=== PATIENT | female | born 1950 | race Caucasian/White ===

== ENCOUNTER → 2018-08-13 | Day surgery (SDC) | payer MEDICARE ==
[2018-08-05 13:14] LABS: BASOPHILS % 0.4 % (0.0-1.0); EOSINOPHILS # (AUTO) 0.2 (0.0-0.4); EOSINOPHILS % 2.2 % (0.0-6.0); HEMATOCRIT 33.5 % (34.2-44.1); HEMOGLOBIN 11.2 g/dL (12.0-16.0); LYMPHOCYTES # (AUTO) 1.8 (1.0-3.2); LYMPHOCYTES % 24.4 % (18.0-39.1); MEAN CORPUSCULAR HEMOGLOBIN 32.7 pg (28-32); MEAN CORPUSCULAR HGB CONC 33.4 g/dL (31-35); MEAN CORPUSCULAR VOLUME 97.7 fL (81-99); MONOCYTES # (AUTO) 0.5 (0.2-0.8); MONOCYTES % 6.4 % (4.4-11.3); NEUTROPHILS # (AUTO) 4.8 (2.1-6.9); NEUTROPHILS % 66.3 % (38.7-80.0); PLATELET COUNT 350 x10e3/uL (140-360); RED BLOOD COUNT 3.43 x10e6/uL (3.6-5.1); RED CELL DISTRIBUTION WIDTH 14.2 % (11.7-14.4)
[2018-08-05 13:34] LABS: ANION GAP 11.7 mmol/L (8-16); BLOOD UREA NITROGEN 10 mg/dL (7-26); BUN/CREATININE RATIO 15 (6-25); CALCIUM 9.2 mg/dL (8.4-10.2); CARBON DIOXIDE 26 mmol/L (22-29); CHLORIDE 105 mmol/L (98-107); CREATININE, SERUM 0.67 mg/dL (0.57-1.11); EST GLOMERULAR FILTRATION RATE > 60 ML/MIN (60-); GLUCOSE 91 mg/dL (74-118); POTASSIUM 3.7 mmol/L (3.5-5.1); SODIUM 139 mmol/L (136-145)
--- NOTE | 2018-08-05 13:38 | Diagnostic Imaging Report ---
EXAMINATION: PA and lateral views of the chest. COMPARISON: None CLINICAL HISTORY: Preoperative study for carpal tunnel syndrome DISCUSSION: The lungs are well-inflated. Right hemidiaphragmatic elevation. No airspace consolidation, pleural effusion, or pneumothorax. Heart size is normal without overt pulmonary edema. No acute osseous abnormalities. IMPRESSION: No acute cardiopulmonary abnormalities. Signed by: Dr. Chadd Serrato M.D. on 08/05/2018 1:34 PM
[~2018-08-13] MED LIST: BIOTIN800 MCG; BUPIVACAINE HCL 0.5% INJ 30 ML VIAL INJ ONE; CALTRATE 600600 MG PO; CEFAZOLIN SOD 1 GM/NS 50ML 50 ML IV ONE; CENTRUM COMPLE1 EACH; CENTRUM SILVER1 EAC1 PO; CYMBALTA30 MG; DEXAMETHASONE SOD PHOS INJ 4 MG/ML VIAL ONE; DICLOFENAC SODI75 MG PO; ENBREL50 MG/1 ML IJ; EVISTA60 MG PO; FENTANYL CITRATE/PF 100MCG/2 ML INJ ONE; FOLIC ACID PO; HYDROCODON-ACE1 EAC7 PO; LASIX40 MG PO; LEVOXYL88 MCG PO; LIDOCAINE HCL 2% LOCAL INJ 5 ML SDV VIAL INJ ONE; LORTAB 7.5-5001 EACH PO; METHOTREXATE2.5 MG PO; MIDAZOLAM HCL 2 MG/2 ML VIAL ONE; MUPIROCIN 2% OINT 22 GM TUBE ONE; NUVIGIL250 MG; ONDANSETRON HCL INJ 2MG/ML 2ML 2 MG/ML VIAL ONE; OXYCODONE-ACET1 EAC1 PO; PHENTERMINE H37.5 MG PO; PLAQUENIL200 MG PO; POTASSIUM PO; PRILOSEC20 MG PO; PROPOFOL IV EMULSION 10 MG/ML 20 ML VIAL ONE; REQUIP XL2 MG PO; SEVOFLURANE INHAL SOLN 250 ML PEN BTL ONE; SLOW RELEASE I143 MG; TIZANIDINE HCL4 M1; VITAMIN D32000 UNI1; XARELTO10 MG PO; ZOLOFT25 MG PO; [UNRECOGNIZED DRUG - OTHER] PO
--- OUTSIDE RECORDS SUMMARY | 2018-08-13 06:26 | XMS REPORT ---
Author Author [facility] Address Unknown Phone Unavailable Care Team Providers Care Marine Meteorologist Name Role Phone MIRELA PINO Unavailable Unavailable Problems This patient has no known problems. Allergies, Adverse Reactions, Alerts This patient has no known allergies or adverse reactions. Medications This patient has no known medications. Results Test Description Test Time Test Comments Text Results Atomic Results Result Comments CHEST 2 VIEWS 2018-08-05 13:32:00 [place] [address] Patient Name: SAMARIA MIDDLETON MR #: [id number] : 1950 Age/Sex: 67/F Req #: [id number] Adm Physician: Ordered by: MIRELA PION MD Report #: [id number] Location: OR Room/Bed: Procedure: [id number] DX/CHEST 2 VIEWS Exam Date: 08/05/18 Exam Time: 1315 REPORT STATUS: Signed EXAMINATION: PA and lateral views of the chest. COM PARISON: None CLINICAL HISTORY: Preoperative study for carpal tunnel syndrome DISCUSSION: The lungs are well-inflated. Right hemidiaphragmatic elevation. No airspace consolidation, pleural effusion, or pneumothorax. Heart size is normal without overt pulmonary edema. No acute osseous abnormalities. IMPRESSION: No acute cardiopulmonary abnormalities. Signed by: Dr. Pushpa Callaway M.D. on 08/05/2018 1:34 PM Dictated By: PUSHPA CALLAWAY MD [id number] Transcribed By: BRADY on 08/05/18 [id number] COPY TO: MIRELA PINO MD
--- OUTSIDE RECORDS SUMMARY | 2018-08-13 06:26 | XMS REPORT | Clinical Summary ---
Author Author [facility] Address Unknown Phone Unavailable Care Team Providers Care Digital Product Specialist Name Role Phone Efe Lewis MD PCP Allergies Comments Active Allergy Reactions Severity Noted Date Pregabalin 03/07/2017 Doxepin 03/07/2017 Medications End Date Status Medication Sig Dispensed Refills Start Date Active amoxicillin (AMOXIL) 500 TK ONE C PO 0 MG capsule TID 7 Active diclofenac (VOLTAREN) 75 TK 1 T PO BID 1 MG EC tablet WITH FOOD 7 Active DULoxetine (CYMBALTA) 30 TK ONE C PO 1 MG capsule QD 7 Active hydroxychloroquine TK 2 TABLETS 1 (PLAQUENIL) 200 mg tablet PO QD 7 Active levothyroxine (SYNTHROID, TK 1 T PO QD 1 LEVOXYL) 112 mcg tablet 7 Active meclizine (ANTIVERT) 25 TAKE 1 T PO 0 mg tablet TID PRN 7 Active omeprazole (PriLOSEC) 20 TK 1 TO 2 CS 0 MG capsule PO QD 7 Active oxyCODone-acetaminophen TK ONE TABLET 0 (PERCOCET) 10-325 mg per PO EVERY 6 7 tablet HOURS Active potassium chloride TK 1 T PO BID 0 (K-DUR) 20 MEQ CR tablet 7 Active rOPINIRole (REQUIP) 3 MG TAKE 2 TS 3 tablet PO QID 7 Active promethazine (PHENERGAN) TK 1 T PO QID 0 25 MG tablet HS FOR 5 DAYS 7 PRF NAUSEA Active multivitamins & Take 15 mL by 0 minerals-ferrous mouth daily. gluconate 9 mg iron/15 mL liquid Active calcium carbonate (TUMS) Chew 1 tablet 0 200 mg calcium (500 mg) daily. chewable tablet Active folic acid (FOLVITE) 1 MG Take 1 mg by 0 tablet mouth daily. Active cholecalciferol, vitamin Take 1,000 0 D3, (VITAMIN D3) 1,000 Units by unit tablet mouth daily. Active vit B comp Take 1 tablet 0 no.6-qcamc-B-biotin by mouth (NEPHRO-ARTHUR RX) 1-60-300 daily. mg-mg-mcg tablet Active furosemide (LASIX) 40 mg Take 40 mg by 0 tablet mouth 2 (two) times a day. Active modafinil (PROVIGIL) 200 Take 200 mg 0 MG tablet by mouth daily. Active diazePAM (VALIUM) 2 MG 0 tablet 7 Active Problems No known active problems Social History Date Tobacco Use Types Packs/Day Years Used Never Smoker Smokeless Tobacco: Never Used Alcohol Use Drinks/Week oz/Week Comments No Sex Assigned at Date Recorded Not on file Industry Job Start Date Occupation Not on file Not on file Not on file Travel End Travel History Travel Start No recent travel history available. Last Filed Vital Signs Not on file Plan of Treatment Health Maintenance Due Date Last Done Comments BREAST CANCER SCREENING 12/20/2001 COLON CANCER SCREENING 12/20/2001 SHINGLES VACCINES (#1) 12/20/2001 65+ PNEUMOCOCCAL VACCINE 12/20/2016 (1 of 2 - PCV13) PNEUMOCOCCAL 12/20/2016 POLYSACCHARIDE VACCINE AGE 65 AND OVER INFLUENZA VACCINE 10/31/2018 Results Not on fileafter 08/12/2017 Insurance Payer Benefit Subscriber ID Type Phone Address Plan / Group [employer] xxxxxxxxx [facility] Advance Directives Patient has advance care planning documents on file. For more information, mariana phillips contact: Preet Celestin [address] [place] [address]
[2018-08-13 10:10] VITALS: BP 104/61
--- NOTE | 2018-08-13 16:08 | Operative Report ---
DATE OF PROCEDURE: 08/13/2018 SURGEON: Sacha Vidales MD PREOPERATIVE DIAGNOSES: 1. Recurrent right carpal tunnel syndrome. 2. Flexor tenosynovitis, right wrist. PROCEDURE: 1. Extended right carpal tunnel release. 2. Flexor tenosynovectomy, wrist and palm. ANESTHESIA: General. HISTORY: The patient is a 67-year-old [id number] female with a history of severe rheumatoid arthritis. She underwent right carpal tunnel release approximately 5-10 years ago and the patient now has recurrent right carpal tunnel syndrome as diagnosed on nerve conduction study testing, which is severe. The risks, benefits, and alternatives of treatment of the extended procedure were discussed with the patient and her and they are prepared to undergo the procedure as outlined. PROCEDURE IN DETAIL: The patient was marked preoperatively in the holding area. She was brought to the operating theater and after the induction of adequate general inhalation anesthesia, she was prepped and draped in a supine position and a time-out was performed. The previous interthenar incision was marked out. The incision was extended proximally over the carpal canal of the wrist and extended onto the distal forearm. The incision was also extended distally past the interthenar space into the mid palm. The right upper extremity was exsanguinated and the tourniquet was inflated to a pressure of 250 mmHg. The incision in the forearm was made through the skin and subcutaneous tissue and venous tributaries were controlled with the bipolar cautery. The interval between the flexor carpi radialis tendon and the palmaris longus tendon was identified. The volar forearm fascia between these two tendons was incised sharply and blunt dissection was done to the deeper tissues. The median nerve was immediately identified in the distal aspect of the forearm. Using this as a guide, the superficial tissues were incised through the skin and subcutaneous tissues, bleeding was controlled using the bipolar cautery and then the incision was deepened through the scarred tissue and the proliferative flexor tenosynovium until complete decompression of the median nerve had been performed from the distal forearm into the mid palm. The trifurcation of the median nerve into its various common digital branches was identified and complete decompression was achieved. The proliferative flexor tenosynovium was radically excised and it was noted to be consistent with a rheumatoid pattern. Once the nerve was completely freed up, the wound was irrigated with bacteriostatic saline and closed with a 5-0 nylon in an interrupted horizontal mattress fashion. A Marcaine field block was performed at the operative site, the tourniquet was deflated, all the fingers pinked up nicely, and the wound was noted to be hemostatic. A sterile bulky and foamy bandage was applied and William wrap was then applied in a loosely wrapped fashion. The patient tolerated the procedure well, was brought to the recovery room in satisfactory condition and discharged with a postoperative instruction sheet as well as a followup appointment. MD WENDY Taylor/ARNAV /[id number]
== END | disposition home or self-care (01) ==
LOC: OR 06:21
PROVIDERS: ATTEND Plastic Surgery
DX: G56.01 Carpal tunnel syndrome, right upper limb (principal); M65.841 Other synovitis and tenosynovitis, right hand; M06.9 Rheumatoid arthritis, unspecified; R53.1 Weakness; K21.9 Gastro-esophageal reflux disease without esophagitis; F41.9 Anxiety disorder, unspecified; F32.9 Major depressive disorder, single episode, unspecified; Z01.810 Encounter for preprocedural cardiovascular examination; Z01.812 Encounter for preprocedural laboratory examination; Z01.818 Encounter for other preprocedural examination; Z98.1 Arthrodesis status
CPT/HCPCS: 25115; 36415; 71046; 80048; 85025; 93005; J0690; J1100; J2001; J2250; J2405; J2704

== ENCOUNTER → 2021-06-02 | Day surgery (SDC) | payer MEDICARE ==
[2021-05-31 11:59] LABS: BASOPHILS % 0.4 % (0.0-1.0); EOSINOPHILS # (AUTO) 0.1 (0.0-0.4); EOSINOPHILS % 0.6 % (0.0-6.0); HEMOGLOBIN 11.4 g/dL (12.0-16.0); LYMPHOCYTES # (AUTO) 2.6 (1.0-3.2); LYMPHOCYTES % 27.8 % (18.0-39.1); MEAN CORPUSCULAR HEMOGLOBIN 29.3 pg (28-32); MEAN CORPUSCULAR HGB CONC 32.6 g/dL (31-35); MONOCYTES # (AUTO) 0.6 (0.2-0.8); MONOCYTES % 6.6 % (4.4-11.3); NEUTROPHILS % 64.2 % (38.7-80.0); PLATELET COUNT 468 x10e3/uL (140-360); RED BLOOD COUNT 3.89 x10e6/uL (3.6-5.1)
[2021-05-31 12:21] LABS: ANION GAP 11.7 mmol/L (8-16); CALCIUM 8.8 mg/dL (8.4-10.2); CREATININE, SERUM 0.7 mg/dL (0.57-1.11); POTASSIUM 3.7 mmol/L (3.5-5.1)
[~2021-06-02] MED LIST changes: +BALANCED SALT SOLN (OPTH) 15 ML BTL IO ONE; +BUPIVACAINE HC 0.75% PF 10ML VIAL INJ ONE; -BUPIVACAINE HCL 0.5% INJ 30 ML VIAL INJ ONE; -CEFAZOLIN SOD 1 GM/NS 50ML 50 ML IV ONE; +CYCLOPENTOLATE HCL 2% OPTH SOLN 2 ML BTL OP ONE; +DEXAMETHASONE SOD PHOS INJ 4 MG/ML SDV ONE; -DEXAMETHASONE SOD PHOS INJ 4 MG/ML VIAL ONE; +ENBREL50 MG/1 ML INJ; +EPINEPHRINE HCL 1:1000 1ML 1 MG/ML AMP ONE; -FENTANYL CITRATE/PF 100MCG/2 ML INJ ONE; +GATIFLOXACIN(OPTH) 5 ML LIQD ONE; +LIDOCAINE 2% /EPINEPHRINE 20 ML SDV INJ ONE; +LIDOCAINE HCL-PF 4% 40 MG/1 ML 5ML AMP ONE; +LORATADINE10 MG PO; -MIDAZOLAM HCL 2 MG/2 ML VIAL ONE; -MUPIROCIN 2% OINT 22 GM TUBE ONE; +PHENYLEPHRINE HCL 2 ML DROPS ONE; +PILOCARPINE HCL(OPTH) 15 ML LIQD ONE; +POVIDONE IODINE 0.05% 0.05 % ML PO ONE; +POVIDONE IODINE 5% (OPTH) 30 ML BTL ONE; +PREDNISONE5 MG PO; -SEVOFLURANE INHAL SOLN 250 ML PEN BTL ONE; +TOBRAMYCIN/DEXAMETHASONE(OPTH) 3.5 GM TUBE ONE
[2021-06-02 10:05] VITALS: BP 139/75
== END | disposition home or self-care (01) ==
LOC: OR 06:07
PROVIDERS: ATTEND Ophthalmology
DX: H25.11 Age-related nuclear cataract, right eye (principal); M81.0 Age-related osteoporosis without current pathological fracture; G25.81 Restless legs syndrome; M06.9 Rheumatoid arthritis, unspecified; E03.9 Hypothyroidism, unspecified; K21.9 Gastro-esophageal reflux disease without esophagitis; Z88.8 Allergy status to other drugs, medicaments and biological substances; Z01.810 Encounter for preprocedural cardiovascular examination; Z01.812 Encounter for preprocedural laboratory examination; Z20.822 Contact with and (suspected) exposure to COVID-19; Z79.899 Other long term (current) drug therapy
CPT/HCPCS: 36415; 66984; 80048; 85025; 93005; J0171; J1100; J2001 ×2; J2405; J2704; U0002; V2632

== ENCOUNTER → 2021-06-29 | Outpatient (CLI) | payer MEDICARE ==
[~2021-06-29] MED LIST changes: -BALANCED SALT SOLN (OPTH) 15 ML BTL IO ONE; -BUPIVACAINE HC 0.75% PF 10ML VIAL INJ ONE; -CYCLOPENTOLATE HCL 2% OPTH SOLN 2 ML BTL OP ONE; -DEXAMETHASONE SOD PHOS INJ 4 MG/ML SDV ONE; -EPINEPHRINE HCL 1:1000 1ML 1 MG/ML AMP ONE; -GATIFLOXACIN(OPTH) 5 ML LIQD ONE; -LIDOCAINE 2% /EPINEPHRINE 20 ML SDV INJ ONE; -LIDOCAINE HCL 2% LOCAL INJ 5 ML SDV VIAL INJ ONE; -LIDOCAINE HCL-PF 4% 40 MG/1 ML 5ML AMP ONE; -ONDANSETRON HCL INJ 2MG/ML 2ML 2 MG/ML VIAL ONE; -PHENYLEPHRINE HCL 2 ML DROPS ONE; -PILOCARPINE HCL(OPTH) 15 ML LIQD ONE; -POVIDONE IODINE 0.05% 0.05 % ML PO ONE; -POVIDONE IODINE 5% (OPTH) 30 ML BTL ONE; -PROPOFOL IV EMULSION 10 MG/ML 20 ML VIAL ONE; -TOBRAMYCIN/DEXAMETHASONE(OPTH) 3.5 GM TUBE ONE
== END ==
LOC: LAB 10:04
PROVIDERS: ATTEND Ophthalmology
DX: Z01.818 Encounter for other preprocedural examination (principal); U07.1 COVID-19; Z53.8 Procedure and treatment not carried out for other reasons

== ENCOUNTER → 2022-05-18 | Outpatient (CLI) | payer MEDICARE | LOC: DX 09:38 | PROVIDERS: ATTEND Nurse Practitioner Adult Health | DX: R13.13 Dysphagia, pharyngeal phase (principal) | CPT/HCPCS: 74220 ==